=== PATIENT | female | born 1980 | race Caucasian/White ===

== ENCOUNTER 2017-10-21 12:45 | Day surgery (SDC) | payer BC ==
[~2017-10-21] VITALS: Ht 167.6 cm; Wt 69.9 kg
[2017-10-21] MEDS ORDERED: NAPR500 (13:10)
[2017-10-21] MEDS ORDERED: ERGO400 (13:10)
[2017-10-21] MEDS ORDERED: Hair, Skin & N1 EACH (13:10)
[2017-10-21] MEDS ORDERED: CHOL10002 (13:11)
[2017-10-21] MEDS ORDERED: FISH OIL + D31 EACH (13:11)
== END 2017-10-21 16:10 | disposition home or self-care (01) ==
LOC: ORSCMMR 12:45 → ORSCSDS 12:45 → ORSCMMR 16:10
PROVIDERS: Orthopaedic Surgery
PROC: 0QSP04Z Reposition Left Metatarsal with Internal Fixation Device, Open Approach (ICD-10-PCS; principal; 2017-10-21 14:30)
DX: S92.352A Displaced fracture of fifth metatarsal bone, left foot, initial encounter for closed fracture (principal)
CPT/HCPCS: C1713; J0690; J1100; J1885; J2250; J2405; J3010; J7120

== ENCOUNTER → 2023-11-19 | Outpatient (CLI) | payer OTHER ==
[~2023-11-19] MED LIST: CHOL10002; ERGO400; FISH OIL + D31 EACH; Hair, Skin & N1 EACH; NAPR500
[2023-11-25 15:51] LABS: HPV HIGH RISK BY TMA Not Detected; HPV SOURCE Vaginal
== END ==
LOC: LAB SHORT 13:46 → LAB 13:46
PROVIDERS: Obstetrics & Gynecology
DX: Z01.419 Encounter for gynecological examination (general) (routine) without abnormal findings (principal)
CPT/HCPCS: 87624; G0123

== ENCOUNTER 2024-07-19 09:39 | Emergency (ER) | payer OTHER ==
[~2024-07-19] VITALS: Ht 165.1 cm; Wt 61.2 kg
[2024-07-19 09:43] VITALS: BP 140/95
== END 2024-07-19 10:01 | disposition home or self-care (01) ==
LOC: ER 09:39
DX: S00.33XA Contusion of nose, initial encounter (principal); S05.11XA Contusion of eyeball and orbital tissues, right eye, initial encounter; W22.8XXA Striking against or struck by other objects, initial encounter; Y99.0 Civilian activity done for income or pay; Z79.899 Other long term (current) drug therapy
CPT/HCPCS: 99282